=== PATIENT | male | born 1955 | race Caucasian/White ===

== ENCOUNTER 2017-11-26 23:59 | Emergency (ER) | payer OTHER ==
[2017-11-27] MEDS ORDERED: HYDROmorphone 1 MG/ML SYRINGE IM STA (00:41)
[2017-11-27] MEDS ORDERED: HYDROcod/ACET 5/325 Prepack 6 PO STA (00:42)
--- NOTE | 2017-11-27 01:14 | ED Physician Documentation ---
History of Present Illness - Stated complaint Stated Complaint: DENTAL PAIN - Chief complaint Chief Complaint: General - History obtained from History obtained from: Patient (pt here with left lower jaw pain. states that he had right sided dental procedure done approx 14 days ago., states that a couple days ago he had left sided pain. went to his dentis today who stated that he had a left sided dental infection and recommended a root canal. pt was started on PCN and sent home with motrin. pt states that he cannot ge tthe dental work completed until after the new year because of his insurance. he staes that he contacted his dentist because he thought that the swelling was worsening and he thought he had problems breathing.) Review of Systems Constitutional: denies: Fever, Chills Eyes: denies: Discharge, Irritation Nose: denies: Congestion, Sinus pressure / pain Throat: reports: Dental pain / toothache, Oral lesions / sores. denies: Swollen tonsils Cardiac: denies: Chest pain / pressure Respiratory: denies: Dyspnea, Cough GI: denies: Nausea, Vomiting Skin: denies: Rash, Lesions, Laceration (s) Musculoskeletal: denies: Neck pain Neurologic: reports: Headache. denies: Generalized weakness, Altered mental status PD PAST MEDICAL HISTORY - Past Medical History Cardiovascular: None Respiratory: None Neuro: None Endocrine/Autoimmune: None GI: None : None HEENT: None Psych: None Musculoskeletal: None Derm: None - Past Surgical History Past Surgical History: Yes General: Colonoscopy HEENT: Other - Present Medications Home Medications: Ambulatory Orders Medication Instructions Recorded Confirmed Acetaminophen [Tylenol] 650 mg PO Q6H PRN 09/27/15 10/02/15 - Allergies Allergies/Adverse Reactions: Allergies Allergy/AdvReac Type Severity Reaction Status Date / Time terbinafine HCl * Allergy Severe Anaphylaxis Verified 09/27/15 14:08 [From Lamisil] - Social History Does the pt smoke?: No Smoking Status: Never smoker Does the pt drink ETOH?: Yes Does the pt have substance abuse?: Yes PD ED PE NORMAL - Vitals Vital signs reviewed: Yes - General General: Alert and oriented X 3, Well developed/nourished. No: No acute distress (mild) - HEENT HEENT: Atraumatic, EOMI, Ears normal, Moist mucous membranes, Pharynx benign, Dentition benign, Other (dentition benign but pt with swelling and TTP to the left lower jaw around the 2nd molar. no drainable abscess seen on my exam. ) - Cardiac Cardiac: RRR, No murmur - Respiratory Respiratory: No respiratory distress, Clear bilaterally - Derm Derm: Normal color, Warm and dry, No rash - Neuro Neuro: Alert and oriented X 3 Eye Opening: Spontaneous Motor: Obeys Commands Verbal: Oriented GCS Score: 15 Results - Vitals Vitals: Vital Signs - 24 hr 11/27/17 00:07 Temperature 36.6 C Heart Rate 69 Respiratory 16 Rate Blood Pressure 131/86 H O2 Saturation 99 Oxygen O2 Source [With Activity] Nasal cannula O2 Source [Without Activity] Nasal cannula O2 Source Room air PD MEDICAL DECISION MAKING - ED course Complexity details: considered differential, d/w patient ED course: pt with left sided dental infection. no airway compromise on this exam. pt is on ABX from his dentist and is just finishing the first day's dose. No skin changes over the area. offered dental block but pt declined. Will giv IM dose of pain medications. He states that he was told by his dentist that he could be seen tomorrow. gave a pre-pack of pain medications. he was instructed to continue his antibiotics. Departure - Departure Disposition: 01 Home, Self Care Clinical Impression: Dental abscess Condition: Good Instructions: ED Abscess Dental Follow-Up: primary, care provider [Other] Comments: Continue your antibiotics that you were given by your dentist. take the pain medications that you were given on this visit as directed. Call your dentist tomorrow for a follow up.
[2017-11-27 02:17] VITALS: BP 121/88
== END 2017-11-27 02:27 | disposition home or self-care (01) ==
LOC: ED 23:59
DX: K04.7 Periapical abscess without sinus (principal); Z98.890 Other specified postprocedural states
CPT/HCPCS: 96372; 99283; J1170

== ENCOUNTER 2019-10-16 07:05 | Emergency (ER) | payer OTHER ==
[2019-10-16] MEDS ORDERED: SODIUM CHLORIDE 0.9% 1,000 ML IV ONE (07:26)
[2019-10-16] MEDS ORDERED: KETOROLAC 30 MG/ML VIAL IVP STA (07:26)
[2019-10-16] MEDS ORDERED: LIDOCAINE-MPF 2% 5 ML in SODIUM CHLORIDE 0.9% 50 ML IV STA (07:26)
[2019-10-16 07:41] LABS: BASOPHILS % (AUTO) 0.7 %; EOSINOPHILS # (AUTO) 0.1 10^3/uL (0.0-0.7); EOSINOPHILS % (AUTO) 2.2 %; LYMPHOCYTES # (AUTO) 1.2 10^3/uL (1.5-3.5); LYMPHOCYTES % (AUTO) 20.6 %; MEAN CORPUSCULAR HEMOGLOBIN 32.1 pg (27.0-31.0); MEAN CORPUSCULAR HGB CONC 33.9 g/dL (32.0-36.0); MEAN CORPUSCULAR VOLUME 94.9 fL (80.0-94.0); MEAN PLATELET VOLUME 8.6 fL (7.4-11.4); MONOCYTES # (AUTO) 0.5 10^3/uL (0.0-1.0); NEUTROPHILS # (AUTO) 3.9 10^3/uL (1.5-6.6); NEUTROPHILS % (AUTO) 67.2 %; PLT - PLATELET COUNT 229 10^3/uL (130-450); RED BLOOD COUNT 4.67 10^6/uL (4.70-6.10); RED CELL DISTRIBUTION WIDTH 12.4 % (12.0-15.0); WHITE BLOOD COUNT 5.8 x10^3/uL (4.8-10.8)
[2019-10-16 07:46] LABS: BILIRUBIN,URINE NEGATIVE (NEGATIVE); GLUCOSE, URINE (UA) NEGATIVE (NEGATIVE); KETONES,URINE (UA) NEGATIVE (NEGATIVE); LEUKOCYTE ESTERASE, URINE NEGATIVE (NEGATIVE); NITRITE,URINE NEGATIVE (NEGATIVE); OCCULT BLOOD,URINE MODERATE (NEGATIVE); PH,URINE 5.5 PH (5.0-7.5); PROTEIN,URINE NEGATIVE (NEGATIVE); UROBILINOGEN,URINE 0.2 (NORMAL) E.U./dL (NORMAL)
[2019-10-16 07:47] LABS: CLARITY,URINE CLEAR (CLEAR)
[2019-10-16] MEDS ORDERED: ONDANSETRON 4 MG/2 ML VIAL IVP STA (07:50)
[2019-10-16] MEDS ORDERED: HYDROmorphone 1 MG/ML CARPUJECT IVP STA (07:50)
[2019-10-16 07:55] LABS: ALBUMIN 4.3 g/dL (3.2-5.5); ALBUMIN/GLOBULIN RATIO 1.6 (1.0-2.2); BILIRUBIN,TOTAL 0.8 mg/dL (0.2-1.0); CALCIUM 8.8 mg/dL (8.5-10.3); CREATININE 0.9 mg/dL (0.6-1.2)
[2019-10-16 07:58] LABS: BACTERIA,URINE None Seen /HPF (None Seen); MUCUS,URINE Few Strands; SQUAMOUS EPITHELIAL CELL,UR NONE SEEN (<= Few)
--- NOTE | 2019-10-16 08:00 | ED Physician Documentation ---
History of Present Illness - Stated complaint Stated Complaint: L BACK PX - Chief complaint Chief Complaint: Abd Pain - History obtained from History obtained from: Patient, Family - History of Present Illness Timing: Last night Pain level max: 10 Pain level now: 10 - Additonal information Additional information: 64-year-old male with right flank pain that radiates to the right groin. Nothing makes it better or worse. Has never had similar symptoms previously. No nausea or vomiting. No fevers. Did not take anything for the pain. Patient also states that his right foot has been hurting for the past 2 weeks since being stepped on by another person. Worse with walking, better with rest Review of Systems Ten Systems: 10 systems reviewed and negative Constitutional: denies: Fever, Chills Cardiac: denies: Chest pain / pressure Respiratory: denies: Cough GI: denies: Vomiting, Diarrhea : denies: Dysuria Skin: denies: Rash Musculoskeletal: denies: Neck pain, Back pain Neurologic: denies: Focal weakness, Numbness, Headache PD PAST MEDICAL HISTORY - Past Medical History Cardiovascular: None Respiratory: None Endocrine/Autoimmune: None GI: None : None HEENT: None Psych: None Musculoskeletal: None Derm: None - Past Surgical History Past Surgical History: Yes General: Colonoscopy HEENT: Other - Present Medications Home Medications: Ambulatory Orders Medication Instructions Recorded Confirmed Acetaminophen [Tylenol] 650 mg PO Q6H PRN 09/27/15 10/02/15 Ibuprofen [Motrin] 800 mg PO Q8H PRN #30 tablet 10/16/19 Ondansetron Odt [Zofran] 4 mg TL Q6H PRN #10 tablet 10/16/19 Oxycodone HCl/Acetaminophen 1 - 2 each PO Q6H PRN #14 tablet 10/16/19 [Percocet 5-325 mg Tablet] - Allergies Allergies/Adverse Reactions: Allergies Allergy/AdvReac Type Severity Reaction Status Date / Time terbinafine HCl * Allergy Severe Anaphylaxis Verified 10/16/19 07:14 [From Lamisil] - Social History Does the pt smoke?: No Smoking Status: Never smoker Does the pt drink ETOH?: Yes Does the pt have substance abuse?: Yes PD ED PE NORMAL - Vitals Vital signs reviewed: Yes - General General: Alert and oriented X 3, Well developed/nourished, Other (Appears in pain) - HEENT HEENT: PERRL, Moist mucous membranes - Neck Neck: Supple, no meningeal sign - Cardiac Cardiac: RRR - Respiratory Respiratory: No respiratory distress, Clear bilaterally - Abdomen Abdomen: Soft, Non tender, Non distended - Back Back: No CVA TTP, No spinal TTP - Derm Derm: Warm and dry, No rash - Extremities Extremities: No edema, Other (Tender to palpation over the dorsum of the right foot. Neurovascular intact. No deformity. No ecchymosis.) - Neuro Neuro: Alert and oriented X 3, supervisor paper coating 2-12 intact, No motor deficit, No sensory deficit - Psych Psych: Normal mood, Normal affect Results - Vitals Vitals: Vital Signs - 24 hr 10/16/19 10/16/19 10/16/19 07:13 07:53 08:08 Temperature 36.7 C Heart Rate 59 L 60 61 Respiratory 18 20 16 Rate Blood Pressure 167/102 H 147/90 H 157/99 H O2 Saturation 99 100 100 10/16/19 09:01 Temperature Heart Rate 51 L Respiratory 16 Rate Blood Pressure 160/96 H O2 Saturation 94 Oxygen O2 Source [] Nasal cannula O2 Source [] Nasal cannula O2 Source Room air - Labs Labs: Laboratory Tests 10/16/19 10/16/19 10/16/19 07:15 07:25 07:25 WBC 5.8 RBC 4.67 L Hgb 15.0 Hct 44.3 MCV 94.9 H MCH 32.1 H MCHC 33.9 RDW 12.4 Plt Count 229 MPV 8.6 Neut # (Auto) 3.9 Lymph # (Auto) 1.2 L [place] # (Auto) 0.5 Eos # (Auto) 0.1 Baso # (Auto) 0.0 Absolute Nucleated RBC 0.00 Nucleated RBC % 0.0 Sodium 139 Potassium 3.7 Chloride 101 Carbon Dioxide 28 Anion Gap 10.0 BUN 19 Creatinine 0.9 Estimated GFR (MDRD) 86 L Glucose 157 H Calcium 8.8 Total Bilirubin 0.8 AST 19 ALT 23 Alkaline Phosphatase 47 Total Protein 7.0 Albumin 4.3 Globulin 2.7 Albumin/Globulin Ratio 1.6 Lipase 35 Urine Color YELLOW Urine Clarity CLEAR Urine pH 5.5 Ur Specific [place] 1.025 Urine Protein NEGATIVE Urine Glucose (UA) NEGATIVE Urine Ketones NEGATIVE Urine Occult Blood MODERATE H Urine Nitrite NEGATIVE Urine Bilirubin NEGATIVE Urine Urobilinogen 0.2 (NORMAL) Ur Leukocyte Esterase NEGATIVE Urine RBC 6-10 H Urine WBC 0-3 Ur Squamous Epith Cells NONE SEEN Urine Bacteria None Seen Urine Mucus Few Strands Ur Microscopic Review INDICATED Urine Culture Comments NOT INDICATED - Rads (name of study) Right foot x-ray Radiology: Prelim report reviewed, EMP read contemporaneously, See rad report (1. No fracture or dislocation. 2. 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 3. Subchondral cyst or small erosion at the base of the fifth middle phalanx. ) CT abd/pelvis Radiology: Prelim report reviewed, EMP read contemporaneously, See rad report (1. Nonobstructing bilateral renal calculi. 2. No findings identified to explain right flank pain. ) PD MEDICAL DECISION MAKING - ED course Complexity details: reviewed results, re-evaluated patient, considered differential, d/w patient, d/w family ED course: 64-year-old male with bilateral renal calculi. No ureteral stone seen. Possible that he passed the stone? Pain resolved in the emergency department. He is well-appearing, nontoxic. Afebrile. Abdomen is soft, nontender nondistended on serial exam. Negative foot x-ray. Patient counseled regarding signs and symptoms for which I believe and urgent re-evaluation would be necessary. Patient with good understanding of and agreement to plan and is comfortable going home at this time This document was made in part using voice recognition software. While efforts are made to proofread this document, sound alike and grammatical errors may occur. Departure - Departure Disposition: 01 Home, Self Care Clinical Impression: Ureteral calculus, right Condition: Good Instructions: ED Stone Renal W Colic Follow-Up: Jeancarlos Raman MD [Provider Admit Priv/Credential] - Jeancarlos Raman MD [Physician No Access] - Prescriptions: Ibuprofen [Motrin] 800 mg PO Q8H PRN #30 tablet PRN Reason: PAIN &/OR FEVER Ondansetron Odt [Zofran] 4 mg TL Q6H PRN #10 tablet PRN Reason: Nausea / Vomiting Oxycodone HCl/Acetaminophen [Percocet 5-325 mg Tablet] 1 - 2 each PO Q6H PRN #14 tablet PRN Reason: pain Comments: Return if you worsen. Follow-up with urology for further care. Return especially for uncontrolled pain, vomiting or fevers. Do not drink alcohol or drive while on narcotic pain medicine. Note that many narcotic pain relievers also contain tylenol/acetaminophen. Please ensure that your total dose of acetaminophen from all sources does not exceed 3 grams (3000mg) per day. You may constipated on this medication, take a stool softener such as "Colace" twice a day while you are on it. Also recommend a juae-kmg-obtscay laxative such as senna or MiraLAX any day that you do not have a bowel movement. If you received narcotic pain medication in the emergency department, do not drive or operate machinery for the next 24 hours. Right Kidney/Ureter: 9 x 6 mm mid pole, 1 mm lower pole right renal calculi. No hydronephrosis or perinephric fat stranding. No ureteral calculus. Left Kidney/Ureter: 3 mm mid pole calculus. No hydronephrosis or hydroureter. No perinephric or periureteral fat stranding. No ureteral calculus. Discharge Date/Time: 10/16/19 09:31
--- NOTE | 2019-10-16 08:29 | CT Report ---
Reason: R flank pain Procedure Date: 10/16/2019 Accession Number: [id number] / [id number] Procedure: CT - Abdomen/Pelvis WO CPT Code: Final Report FULL RESULT: EXAM: CT ABDOMEN AND PELVIS (CT KUB) EXAM DATE: 10/16/2019 07:51 AM. CLINICAL HISTORY: R flank pain. COMPARISONS: None. TECHNIQUE: Routine axial helical CT imaging was performed through the abdomen and pelvis without IV contrast. Reconstructions: Coronal and sagittal. In accordance with CT protocol optimization, one or more of the following dose reduction techniques were utilized for this exam: automated exposure control, adjustment of mA and/or KV based on patient size, or use of iterative reconstructive technique. FINDINGS: Lung Bases: Unremarkable. Right Kidney/Ureter: 9 x 6 mm mid pole, 1 mm lower pole right renal calculi. No hydronephrosis or perinephric fat stranding. No ureteral calculus. Left Kidney/Ureter: 3 mm mid pole calculus. No hydronephrosis or hydroureter. No perinephric or periureteral fat stranding. No ureteral calculus. Other Solid Organs: Noncontrast images of the solid organs are grossly unremarkable. Gallbladder/Bile Ducts: Unremarkable. Peritoneal Cavity: Unopacified stomach and small bowel are unremarkable. Appendix is normal. There is a small amount of formed stool in the colon. There is no focal pericolonic fat stranding. There is mild sigmoid colon diverticulosis. Pelvic Organs: Bladder unremarkable. No bladder calculi. Prostate gland and seminal vesicles unremarkable. Vasculature: Minimal aortic calcification. Bilateral pelvic phleboliths. Other: Small fat-containing left inguinal hernia. Left total hip arthroplasty causing beam hardening artifact. Minimal diffuse idiopathic skeletal hyperostosis in the lower thoracic greater than lumbar spine. IMPRESSION: 1. Nonobstructing bilateral renal calculi. 2. No findings identified to explain right flank pain. [facility]
--- NOTE | 2019-10-16 08:29 | XRAY Report ---
Reason: R foot pain x 2 weeks Procedure Date: 10/16/2019 Accession Number: [id number] / [id number] Procedure: XR - Foot 3 View RT CPT Code: Final Report FULL RESULT: EXAM: RIGHT FOOT RADIOGRAPHY EXAM DATE: 10/16/2019 08:06 AM. CLINICAL HISTORY: R foot pain x 2 weeks. COMPARISON: None. TECHNIQUE: 3 views. FINDINGS: Bones: No fracture. Subchondral cyst or small erosion at the base of the fifth middle phalanx. Joints: Hallux valgus with first metatarsal phalangeal joint angle measuring 20 degrees. First metatarsophalangeal joint osteoarthritis with joint space loss and osteophytosis. Soft Tissues: Normal. No soft tissue swelling. IMPRESSION: 1. No fracture or dislocation. 2. 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 3. Subchondral cyst or small erosion at the base of the fifth middle phalanx. [facility]
[2019-10-16] MEDS ORDERED: oxyCODONE 5 MG TABLET PO STA (08:56)
[2019-10-16 09:02] VITALS: BP 160/96
== END 2019-10-16 09:31 | disposition home or self-care (01) ==
LOC: ED 07:05
DX: N20.0 Calculus of kidney (principal); M19.071 Primary osteoarthritis, right ankle and foot; M21.611 Bunion of right foot
CPT/HCPCS: 36415; 73630; 74176; 80053; 81001; 83690; 85025; 96374; 96375; 99284; A9270; J1170; J7040; 81003; 87086

== ENCOUNTER 2019-10-19 09:58 | Day surgery (SDC) | payer OTHER ==
[2019-10-19] MEDS ORDERED: LACTATED RINGERS 1,000 ML IV ONE (10:18)
[2019-10-19] MEDS ORDERED: fentaNYL 250 MCG/5 ML VIAL IVP ONE (11:53)
[2019-10-19] MEDS ORDERED: MIDAZOLAM 2 MG/2 ML VIAL IVP ONE (11:53)
[2019-10-19 13:09] VITALS: BP 153/99
== END 2019-10-19 09:59 | disposition home or self-care (01) ==
LOC: SDS 09:58
PROVIDERS: ATTEND Internal Medicine Gastroenterology
PROC: 0DBL8ZZ Excision of Transverse Colon, Via Natural or Artificial Opening Endoscopic (ICD-10-PCS; 2019-10-19)
PROC: 0DBN8ZZ Excision of Sigmoid Colon, Via Natural or Artificial Opening Endoscopic (ICD-10-PCS; principal; 2019-10-19 11:15)
DX: K57.31 Diverticulosis of large intestine without perforation or abscess with bleeding (principal); K64.8 Other hemorrhoids; D12.3 Benign neoplasm of transverse colon; D12.5 Benign neoplasm of sigmoid colon; Z87.442 Personal history of urinary calculi
CPT/HCPCS: 45385; J7120

== ENCOUNTER 2021-08-07 14:14 | Outpatient (CLI) | payer OTHER ==
--- NOTE | 2021-08-07 17:28 | MRI Report ---
PROCEDURE: Hip LT W/O INDICATIONS: LEFT HIP PAIN TECHNIQUE: Noncontrast coronal T1 spin echo and STIR through the bony pelvis. Coronal and axial T2 fast spin ec ho with fat saturation, sagittal T1 spin echo, and oblique axial T2 fast spin echo with fat saturatio n through the hip. COMPARISON: CT of abdomen and pelvis dated 10/16/2019. FINDINGS: Image quality: Limited. Significant susceptibility artifacts in left hip are seen. Bones and joints: Patient is status post left total hip arthroplasty with significant susceptibility artifacts limits evaluation of left hip structures. Rest of the bony pelvis shows no marrow signal ab normality. No fracture or dislocation. Mild to moderate right hip joint osteoarthritic changes are se en. No evidence of avascular necrosis of femoral head. No suspicious intraosseous lesion. Tendons: The gluteus medius and minimus tendinosis at the, without associated muscle atrophy. The i liopsoas tendon appears intact, without adjacent bursal fluid collections. The origin of the hamstri ng tendon is intact at the ischial tuberosity. Labrum and cartilage: The acetabular labrum appears intact in the absence of intra-articular contras t. Cartilage surface of the femoral head appears of normal thickness. The alpha angle of the femur is within normal limits at less than 55 degrees. Soft tissues: Visualized muscles demonstrate normal bulk and internal signal. The proximal sciatic neurovascular bundle appears normal adjacent to the hamstring tendons. No free pelvic fluid. Bladde r wall thickness is normal. Genitourinary structures and bowel loops appear normal where visualized. IMPRESSION: 1. Markedly limited study due to significant susceptibility artifacts in left hip from left hip prost hesis. Visualized osseous structures shows no marrow edema. No fracture or dislocation. Mild to moder ate right hip joint osteoarthritis without evidence of avascular necrosis of femoral head. 2. Distal left gluteus medius and minimus tendinosis at the level of greater trochanter. No other omaira ss muscle or tendon signal abnormality. Reviewed by: Bernardo Arceo MD on 08/07/2021 5:27 PM PDT Approved by: Bernardo Arceo MD on 08/07/2021 5:27 PM PDT Station ID: [id number]
== END 2021-08-07 14:15 | disposition home or self-care (01) ==
LOC: DI 14:14
PROVIDERS: ATTEND Student in an Organized Health Care Education/Training Program
DX: M67.952 Unspecified disorder of synovium and tendon, left thigh (principal); M16.11 Unilateral primary osteoarthritis, right hip; Z96.642 Presence of left artificial hip joint

== ENCOUNTER 2022-09-27 06:21 | Day surgery (SDC) | payer MEDICARE, OTHER ==
[2022-09-27] MEDS ORDERED: LACTATED RINGERS 1,000 ML IV ONE (06:44)
--- NOTE | 2022-09-27 06:51 | ANESTHESIA ---
Pre-Anesthesia VS, & Labs - Diagnosis symptomatic hemorrhoids - Procedure excision hemorrhoids Vital Signs: Temp Pulse Resp BP Pulse Ox O2 Flow Rate 36.0 C L 65 16 123/77 96 0 09/27/22 06:45 09/27/22 06:45 09/27/22 06:45 09/27/22 06:45 09/27/22 06:45 09/27/22 06:45 Height: 5 ft 5 in Weight (kg): 75.3 kg Body Mass Index: 27.6 BMI Classification: Overweight - NPO >8 hours - Lab Results Lab results reviewed: Yes Home Medications and Allergies Home Medications: Ambulatory Orders No Known Home Medications 09/20/22 No Known Home Medications 09/20/22 Allergies/Adverse Reactions: Allergies Allergy/AdvReac Type Severity Reaction Status Date / Time terbinafine HCl * Allergy Severe Anaphylaxis Verified 09/27/22 06:57 [From Lamisil] Anes History & Medical History - Anesthetic History Anesthesia Complications: reports: No previous complications Family history of Anesthesia Complications: Denies Family history of Malignant Hyperthermia: Denies - Medical History Cardiovascular: reports: None Pulmonary: reports: Sleep apnea Gastrointestinal: reports: Colon polyps, Hemorrhoids Urinary: reports: None Musculoskeletal: reports: None Endocrine/Autoimmune: reports: None Skin: reports: None Smoking Status: Never smoker - Surgical History General: reports: Colonoscopy Eyes Ears Nose Throat (EENT): reports: Other Exam General: Alert, Oriented x3, Cooperative Dental: WNL Mouth Openin Fingerbreadth Neck Mobility: Normal Mallampati classification: I Thyromental Distance: 4-6 cm Respiratory: Lungs clear, Normal breath sounds, No respiratory distress Cardiovascular: Regular rate Neurological: Normal speech Mental/Cognitive Status: Alert/Oriented X3, Normal for patient Cognitive Status: Within normal limits Plan Anesthesia Type: General Consent for Procedure(s) Verified and Reviewed: Yes Code Status: Attempt Resuscitation ASA classification: 2-Mild systemic disease Is this case an emergency?: No
[2022-09-27] MEDS ORDERED: METOCLOPRAMIDE 10 MG/2 ML VIAL IVP PRN (06:58)
[2022-09-27] MEDS ORDERED: ePHEDrine 50 MG/ML VIAL IVP PRN (06:58)
[2022-09-27] MEDS ORDERED: NALOXONE 0.4 MG/ML VIAL IVP PRN (06:58)
[2022-09-27] MEDS ORDERED: fentaNYL 100 MCG/2 ML VIAL IVP PRN (06:58)
[2022-09-27] MEDS ORDERED: ONDANSETRON 4 MG/2 ML VIAL IVP PRN ×2 (06:58→09:38)
[2022-09-27] MEDS ORDERED: ATROPINE ABBOJECT 1 MG/10 ML SYRINGE IVP PRN (06:58)
[2022-09-27] MEDS ORDERED: MORPHINE 2 MG/ML CARPUJECT IVP PRN (06:58)
[2022-09-27] MEDS ORDERED: HYDROmorphone 0.5 MG/0.5 ML SYRINGE IVP PRN ×2 (06:58→09:38)
[2022-09-27] MEDS ORDERED: LACTATED RINGERS 1,000 ML IV SCH (07:00)
[2022-09-27] MEDS ORDERED: ROCURONIUM 50 MG/5 ML VIAL ONE (07:12)
[2022-09-27] MEDS ORDERED: PROPOFOL 200 MG/20 ML VIAL IVP ONE (07:12)
[2022-09-27] MEDS ORDERED: fentaNYL 100 MCG/2 ML VIAL ONE (07:13)
[2022-09-27] MEDS ORDERED: MIDAZOLAM 2 MG/2 ML VIAL ONE (07:13)
[2022-09-27] MEDS ORDERED: LIDOCAINE-PF 2% 10 ML AMP SUBQ ONE (07:17)
[2022-09-27] MEDS ORDERED: SEVOFLURANE 250 ML LIQUID INH ONE (07:17)
[2022-09-27] MEDS ORDERED: LIDOCAINE MPF 2%-EPI 1:200000 20 ML VIAL ONE (07:23)
[2022-09-27] MEDS ORDERED: LIDOCAINE JELLY 2% 6 ML JEL.PF.APP ONE (07:23)
[2022-09-27] MEDS ORDERED: BUPIVACAINE 0.25% PF 10 ML VIAL ONE (07:24)
[2022-09-27] MEDS ORDERED: DEXAMETHASONE 4 MG/ML VIAL ONE (08:07)
[2022-09-27] MEDS ORDERED: ONDANSETRON 4 MG/2 ML VIAL ONE (08:07)
[2022-09-27] MEDS ORDERED: PHENYLEPHRINE 10 MG/ML VIAL ONE (08:13)
[2022-09-27] MEDS ORDERED: NEOSTIGMINE 1 MG/1 ML 10 ML MDV ONE (08:31)
[2022-09-27] MEDS ORDERED: GLYCOPYRROLATE 1 MG/5 ML VIAL ONE (08:31)
[2022-09-27] MEDS ORDERED: KETOROLAC 30 MG/ML VIAL ONE (08:36)
[2022-09-27] MEDS ORDERED: LIDOCAINE MPF 2%-EPI 1:200000 20 ML VIAL SUBQ ONE (09:03)
[2022-09-27] MEDS ORDERED: LIDOCAINE JELLY 2% 6 ML JEL.PF.APP UR ONE (09:03)
[2022-09-27] MEDS ORDERED: BUPIVACAINE 0.25% PF 10 ML VIAL SUBQ ONE (09:03)
[2022-09-27] MEDS ORDERED: LACTATED RINGERS 400 ML IV ONE (09:18)
--- NOTE | 2022-09-27 09:18 | OPERATIVE REPORT ---
Operative Report - General Procedure Date: 09/27/22 Planned Procedure: PPH hemorrhoidectomy Pre-Op Diagnosis: Symptomatic hemorrhoids Procedure Performed: PPH hemorrhoidopexy with LigaSure excision of redundant hemorrhoidal tissue Post Op Diagnosis: Same - Procedure Note Primary Surgeon: Jeff Kidd MD Anesthesia Provider: Abdoul Yanes CRNA Anesthesia Technique: General ET tube, Local (40 mL of 50-50 mix of quarter percent Marcaine and 2% lidocaine with 1% epinephrine) IV Fluids (mL): 600 Estimated Blood Loss (mL): 20 Drain/Tube Type: Other (None.) Indications: As above. Complications: None. - Other Other Information/Narrative: After verbal and written informed consent was obtained detailing the operation, the alternatives the operation including no operation, risks of infection, bleeding requiring transfusion with its risks, nerve injury, and and after I met with the patient confirming the surgery and the site of surgery, the patient was brought to the operative suite and placed supine on the operating table. Great care was taken to avoid pressure points to prevent pressure necrosis or nerve injury. Monitoring devices were applied. Abdoul Yanes CRNA sedated and anesthetized the patient for the entire procedure. The patient was then placed in prone jackknife position and prepped and draped in the usual sterile manner. Again, great care was taken to avoid pressure points to prevent pressure necrosis or nerve injury. A "time in" then confirmed that the patient was identified with 3 identifiers (name, date, and medical record number), the history and physical was updated and in the chart, the signed consent confirming the procedure was in the chart, the patient was in the correct position, the aforementioned prophylactic measures were in place or given, we had the correct personnel and equipment to complete the procedure and that anesthesia and the surgical team were given an opportunity to express any concer ns. With the agreement of everyone in the room we proceeded with the operation. External examination revealed a small skin tag at the 12 o'clock position. Digital rectal examination was done progressively from 1 to 3 fingers using a water-soluble lubricant to gently dilate the area. A PPH kit was obtained and opened. The white dilator was carefully placed in the patient's anus and left in place for several minutes to gently open the area. This was then removed and replaced with the access port and anoscope. The access port was then sewn to the perianal skin using 2-0 nylon superiorly and inferiorly to keep it in place. With the anoscope in place great care was taken to place a pursestring suture of 2-0 Prolene 4 cm up from the anal verge. Small bites were taken every 45 degrees circumferentially starting at the 3 o'clock position. I actually went beyond the 3 o'clock position upon return just to ensure that there was a complete pamunkey. Upon completion of the pursestring I placed my finger through the purse-string suture and pulled the pursestring suture a little bit tighter to ensure there was a complete purse-string about my finger. There was. The anvil was then placed past the purse-string and the suture tied tied about the post. The end of the suture was then placed through the hole at the orange port of the anvil and tied tight. The anvil was then secured to the stapler and screwed down taking care to advance the stapler to ensure that the staple was 4 cm up from the anal verge. 3 minutes were allowed to elapse to allow for emptying of blood from the hemorrhoidal tissues. The stapler was then fired and removed. Unfortunately, despite care taken to ensure there was a complete and total purse-string there was not a circumferential staple line and this was evident at the 9 o'clock position. Due to this I elected to excise some redundant hemorrhoidal tissue at the 9 o'clock position with serial application of the LigaSure. Hemostasis was noted to be present. The perianal area was then injected with a combination of quarter percent Marcaine and 2% lidocaine with epinephrine for immediate and long-term anesthetic control. A Gelfoam roll was come constructed using Gelfoam and lidocaine jelly and inserted into the patient's anus for long-term pain control as well as to absorb any blood that may be present. An ABD was placed exteriorly. At this point a timeout was performed that confirmed that all counts were correct x2, the procedure that was performed, the blood loss, the IV fluids administered, the patient's condition, and any concerns of the operating team had. Having tolerated the procedure well, the patient was taken recovery room in good and stable condition. The plan is for outpatient discharge when the patient is adequately recovered. This document was created in part using voice recognition technology. Because of the inherent limitations of the system, occasional same sounding word substitutions and grammatical errors do occur and persist despite proofreading. Please read this document for content. [facility] [id number]
[2022-09-27] MEDS ORDERED: HYDROcod/ACETAM 5/325 MG TABLET PO PRN (09:38)
--- NOTE | 2022-09-27 09:46 | ANESTHESIA POST OP EVALUATION ---
Anesthesia Post Eval - Post Anesthesia Eval Vitals: Last Vital Signs Temp 36.2 C L 09/27/22 09:32 Pulse 90 09/27/22 09:32 Resp 24 09/27/22 09:32 BP 138/91 H 09/27/22 09:32 Pulse Ox 99 09/27/22 09:32 O2 Flow Rate 0 09/27/22 06:45 CV Function Including HR & BP: Stable Pain Control: Satisfactory Nausea & Vomiting: Negative Mental Status: Baseline Respiratory Status: Airway Patent Hydration Status: Satisfactory Anesthesia Complications: None
[2022-09-27 10:02] VITALS: BP 132/90
== END 2022-09-27 06:22 | disposition home or self-care (01) ==
LOC: SDS 06:21
PROVIDERS: ATTEND Surgery
PROC: 06BY4ZC Excision of Hemorrhoidal Plexus, Percutaneous Endoscopic Approach (ICD-10-PCS; principal; 2022-09-27 07:30)
DX: K64.8 Other hemorrhoids (principal); K64.4 Residual hemorrhoidal skin tags; G47.30 Sleep apnea, unspecified; Z86.010 Personal history of colon polyps
CPT/HCPCS: 46947; J3490; J7120

== ENCOUNTER 2023-05-27 13:12 | Emergency (ER) | payer MEDICARE, OTHER ==
[2023-05-27 13:20] VITALS: BP 150/90
--- NOTE | 2023-05-27 13:39 | ED Physician Documentation ---
PD HPI LOWER EXT INJURY - Stated complaint Stated Complaint: RT FOOT INJ - Chief complaint Chief Complaint: Ext Problem - History obtained from History obtained from: Patient, Friend - History of Present Illness PD HPI LOW EXT INJURY LOCATION: Right, Foot Type of injury: Blunt / blow Where injury occurred: Home Timing - onset: How many weeks ago (1) Timing - duration: Weeks (1) Timing - details: Abrupt onset, Still present Improved by: Rest Worsened by: Moving, Palpating Associated symptoms: Swelling, Discolored Contributing factors: No: Anticoagulated, Prior ortho surgery Similar symptoms before: Diagnosis (skin infection) Recently seen: Not recently seen - Additional information Additional information: Previously well Antonio Singh is a 68-year-old male who comes to the emergency department today with the chief complaint of pain and swelling to his right foot. He has taken some penicillin he had left over and he believes it has helped some. He did injure the foot between the toes laterally and he felt it was healing until about 5 days ago. Review of Systems Constitutional: denies: Fever Ears: denies: Ear pain Nose: denies: Congestion Throat: denies: Sore throat Respiratory: denies: Cough GI: denies: Vomiting, Diarrhea PD PAST MEDICAL HISTORY - Past Medical History Cardiovascular: None Respiratory: Sleep apnea Endocrine/Autoimmune: None GI: Colon polyps, Hemorrhoids : None HEENT: None Psych: None Musculoskeletal: None Derm: None - Past Surgical History Past Surgical History: Yes General: Colonoscopy HEENT: Other - Present Medications Home Medications: Ambulatory Orders Medication Instructions Recorded Confirmed Docusate Sodium 250Mg Capsule 250 mg PO DAILY #10 cap 09/27/22 [Colace 250Mg Capsule] HYDROcod/ACETAM 5/325 [[place] 5/325] 1 each PO Q4H #20 tablet 09/27/22 cephALEXin [Keflex] 500 mg PO Q6H #28 cap 05/27/23 - Allergies Allergies/Adverse Reactions: Allergies Allergy/AdvReac Type Severity Reaction Status Date / Time terbinafine HCl * Allergy Severe Anaphylaxis Verified 05/27/23 13:17 [From Lamisil] - Social History Does the pt smoke?: No Smoking Status: Never smoker Does the pt drink ETOH?: Yes Does the pt have substance abuse?: Yes PD ED PE NORMAL - Vitals Vital signs reviewed: Yes (hypertensive ) - General General: Alert and oriented X 3, No acute distress, Well developed/nourished - HEENT HEENT: Atraumatic, PERRL, EOMI - Respiratory Respiratory: No respiratory distress - Extremities Extremities: No deformity, No edema, Other (There is erythema and swelling be tween the 4th and 5th toes with drainage present. No mass present. healing laceration suspected between toes. 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, No motor deficit, No sensory deficit, Normal speech Eye Opening: Spontaneous Motor: Obeys Commands Verbal: Oriented GCS Score: 15 - Psych Psych: Normal mood, Normal affect Results - Vitals Vitals: Vital Signs - 24 hr 05/27/23 13:17 Temperature 36.5 C Heart Rate 78 Respiratory 16 Rate Blood Pressure 150/90 H O2 Saturation 98 Oxygen O2 Source [With Activity] Nasal cannula O2 Source [Without Activity] Nasal cannula O2 Source Room air PD Medical Decision Making - ED course Complexity details: considered differential, d/w patient, d/w family ED course: 68-year-old male with a cellulitis to the dorsum of the right foot that starts out between the fourth and fifth toes. He has had some partial response to penicillin we will place him on some Keflex and warm compresses and expect resolution. Departure - Departure Disposition: 01 Home, Self Care Clinical Impression: Cellulitis Qualifiers: Site of cellulitis: extremity Site of cellulitis of extremity: lower extremity Laterality: right Qualified Code(s): L03.115 - Cellulitis of right lower limb Condition: Stable Instructions: ED Infec Skin Cellulitis Follow-Up: [facility] [place] [Provider Group] Prescriptions: cephALEXin [Keflex] 500 mg PO Q6H #28 cap Comments: Fred, today it looks like you have an infection under the skin in the fat layer. This is called cellulitis and this can sometimes spread rapidly. It looks like it is already responding to the penicillin you have been taking. Today we are E scribing some Keflex to the [facility] in [place]. My recommendation is to use a warm compress or a warm soak 2-3 times per day to increase the blood supply to the skin and aid in the healing and fighting of the infection. Our expectation with treatment is improvement day by day especially over the next 2 days. A failure of treatment is a reason to come back to the hospital. Failure would appear as increasing redness and swelling along the top of your foot or a red line from the foot into the calf. Discharge Date/Time: 05/27/23 14:00
== END 2023-05-27 14:00 | disposition home or self-care (01) ==
LOC: ED 13:12
DX: L03.115 Cellulitis of right lower limb (principal)
CPT/HCPCS: 99281; 99283

== ENCOUNTER 2024-07-12 11:09 | Emergency (ER) | payer MEDICARE, OTHER ==
[2024-07-12 11:30] VITALS: O2SAT 99
[2024-07-12 11:58] LABS: BASOPHILS % (AUTO) 0.8 %; EOSINOPHILS % (AUTO) 0.8 %; HCT - HEMATOCRIT 47.6 % (42.0-52.0); HGB - HEMOGLOBIN 15.7 g/dL (14.0-18.0); LYMPHOCYTES # (AUTO) 0.7 10^3/uL (1.5-3.5); MEAN CORPUSCULAR HEMOGLOBIN 31.4 pg (27.0-31.0); MEAN CORPUSCULAR VOLUME 95.2 fL (80.0-94.0); MEAN PLATELET VOLUME 8.9 fL (7.4-11.4); MONOCYTES # (AUTO) 0.4 10^3/uL (0.0-1.0); MONOCYTES % (AUTO) 7.8 %; NEUTROPHILS # (AUTO) 3.8 10^3/uL (1.5-6.6); NEUTROPHILS % (AUTO) 76.2 %; PLT - PLATELET COUNT 254 10^3/uL (130-450); RED CELL DISTRIBUTION WIDTH 12.5 % (12.0-15.0)
--- NOTE | 2024-07-12 12:09 | ED Physician Documentation ---
PD HPI CHEST PAIN - Stated complaint Stated Complaint: HIGH HEART RATE - Chief complaint Chief Complaint: Cardiac - Additional information Additional information: 69-year-old male with history of sleep apnea, colon polyps, hemorrhoids presents emergency department for concerns of high heart rate. Patient denies any past medical history related to his heart or hypertension he says that he does not take any medications no new supplements he does use CBD/TSH every few days and drinks beer here and there but not daily. He said that his about a year ago and he has been having severe depression and anxiety since then he does not drink any caffeine and says that he has been having what he describes as heart palpitations over the last 3 to 4 days. He does not have a primary care provider he denies any chest pain dizziness or shortness of breath. 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 No fevers or chills no recent illnesses. PD PAST MEDICAL HISTORY - Past Medical History Cardiovascular: None Respiratory: Sleep apnea Neuro: None Endocrine/Autoimmune: None GI: Colon polyps, Hemorrhoids : None HEENT: None Psych: None Musculoskeletal: None Derm: None - Past Surgical History Past Surgical History: Yes General: Colonoscopy HEENT: Other - Present Medications Home Medications: Ambulatory Orders Medication Instructions Recorded Confirmed Docusate Sodium 250Mg Capsule 250 mg PO DAILY #10 cap 09/27/22 [Colace 250Mg Capsule] HYDROcod/ACETAM 5/325 [[place] 5/325] 1 each PO Q4H #20 tablet 09/27/22 cephALEXin [Keflex] 500 mg PO Q6H #28 cap 05/27/23 Ofloxacin [Ofloxacin Otic drops] 10 drops LEFTEAR DAILY 10 Days #10 07/12/24 ml - Allergies Allergies/Adverse Reactions: Allergies Allergy/AdvReac Type Severity Reaction Status Date / Time terbinafine HCl * Allergy Severe Anaphylaxis Verified 07/12/24 11:18 [From Lamisil] - Social History Does the pt smoke?: No Smoking Status: Never smoker Does the pt drink ETOH?: Yes Does the pt have substance abuse?: Yes PD ED PE NORMAL - Vitals Vital signs reviewed: Yes - General General: Alert and oriented X 3, No acute distress, Well developed/nourished - HEENT HEENT: Atraumatic, Other (Right ear: normal intact TM. Left ear: external ear canal swelling, unable to visualize TM) - Cardiac Cardiac: RRR, No murmur, No gallop, Strong equal pulses - Respiratory Respiratory: No respiratory distress, Clear bilaterally - Abdomen Abdomen: Soft - Extremities Extremities: No edema, No calf tenderness / cord - Psych Psych: Other PD ED PE EXPANDED - HEENT HEENT: PERRL - Psych Psych: Depressed, Tearful, Anxious, Manic, Pressured speech. No: Suicidal, Homicidal, Withdrawn Results - Vitals Vitals: Vital Signs - 24 hr 07/12/24 07/12/24 07/12/24 11:14 12:46 13:18 Heart Rate 68 61 Respiratory 18 18 Rate Blood Pressure 137/90 H 120/78 Blood Pressure 123/91 H [Right] O2 Saturation 99 99 Oxygen O2 Source [With Activity] Nasal cannula O2 Source [Without Activity] Nasal cannula O2 Source Room air - EKG (time done) 1125 EKG releavant findings:: EKG personally interpreted by author of this note. Relevant findings are: Rate: Rate (enter#) (75) Rhythm: NSR [place]: Normal Intervals: Normal NC QRS: Normal Ischemia: Normal ST segments Other comments: Other comments (atrial premature complex) Computer interpretation: Agree with computer - Labs Labs: Laboratory Tests 07/12/24 07/12/24 07/12/24 11:54 11:54 11:54 WBC 5.0 RBC 5.00 Hgb 15.7 Hct 47.6 MCV 95.2 H MCH 31.4 H MCHC 33.0 RDW 12.5 Plt Count 254 MPV 8.9 Neut # (Auto) 3.8 Lymph # (Auto) 0.7 L [place] # (Auto) 0.4 Eos # (Auto) 0.0 Baso # (Auto) 0.0 Absolute Nucleated RBC 0.00 Nucleated RBC % 0.0 Sodium 138 Potassium 4.5 Chloride 104 Carbon Dioxide 29 Anion Gap 5.0 L BUN 19 Creatinine 0.9 Estimated GFR (MDRD) 84 L Glucose 93 Calcium 9.9 Total Bilirubin 0.9 AST 15 ALT 16 Alkaline Phosphatase 62 Troponin I High Sens 2.9 Total Protein 6.9 Albumin 4.4 Globulin 2.5 Albumin/Globulin Ratio 1.8 Lipase 27 TSH 0.93 - Rads (name of study) chest Xray Relevant Findings:: Final report received, EMP independent interpretation of test, Other (no acute cardiopulmonary abnormalities) PD Medical Decision Making - ED course ED course: Exam without evidence of volume overload so doubt heart failure. EKG without signs of active ischemia, arrhythmias or a-fib. Given the timing of pain to ER presentation, single troponin was negative so doubt NSTEMI. Presentation not consistent with acute PE (Wells low risk low),pneumothorax (not visualized on chest xr), thoracic aortic dissection, pericarditis, tamponade, pneumonia (no infectious symptoms, clear chest xr), myocarditis (no recent illness, neg trop). HEART score: 2 so plan to discharge patient home with PCP follow up. Departure - Departure Disposition: 01 , Self Care Clinical Impression: Heart palpitations, External otitis of left ear Instructions: ED Otitis Externa Prescriptions: Ofloxacin [Ofloxacin Otic drops] 10 drops LEFTEAR DAILY 10 Days #10 ml Comments: Thank you for trusting us with your care. We have completed labs, EKG, chest x- ray and we are not seeing any acute abnormal findings at this point in time. I do believe that you are experiencing a severe amount of stress and anxiety from the loss of your and I would strongly encourage you to get set up with grief counseling to help you with processing your loss. I also strongly encourage you to follow-up with primary care provider to consider starting an antidepressant for a short period of time to help you with the depression you are experiencing. Please come back to the emergency department if you are heart palpitations change to chest pain, dizziness or any worsening symptoms. We also have found that you have an external ear infection of your left ear we have placed 10 drops in your left ear today he will do this once a day for the next 10 days I have sent your prescription to your preferred pharmacy on file. Make sure that after he put the eardrops in your left ear that you are laying down for about 45 minutes so that the eardrops can penetrate to the infection of your left ear. Again please come back to the emergency department if your chest palpitations symptoms change in severity or get any worse or if you start to develop any urgent emergent concerning symptoms. Forms: PCP List Discharge Date/Time: 07/12/24 13:28
[2024-07-12 12:12] LABS: ALBUMIN 4.4 g/dL (3.2-5.5); ALBUMIN/GLOBULIN RATIO 1.8 (1.0-2.2); BILIRUBIN,TOTAL 0.9 mg/dL (0.2-1.0); CALCIUM 9.9 mg/dL (8.5-10.3); CREATININE 0.9 mg/dL (0.6-1.3); POTASSIUM 4.5 mmol/L (3.5-4.5); TOTAL PROTEIN 6.9 g/dL (6.4-8.9)
[2024-07-12 12:19] LABS: TROPONIN I HIGH SENSITIVITY 2.9 ng/L (2.3-19.7)
--- NOTE | 2024-07-12 12:33 | XRAY Report ---
PROCEDURE: Chest 1V INDICATIONS: Chest pain TECHNIQUE: One view of the chest was acquired. COMPARISON: None. FINDINGS: Surgical changes and devices: None. Lungs and pleura: No pleural effusions or pneumothorax. Lungs are clear. Mediastinum: Mediastinal contours appear normal. Heart size is normal. Calcification is seen of th e aortic arch. Bones and chest wall: Age-appropriate degenerative changes are seen. No suspicious bony lesions. Overlying soft tissues appear unremarkable. IMPRESSION: No acute cardiopulmonary process. Reviewed by: Mannie Olivares MD on 07/12/2024 11:32 AM [facility]ANT Approved by: Mannie Olivares MD on 07/12/2024 11:32 AM BRANT Station ID: [id number]
[2024-07-12] MEDS: OFLOXACIN 0.3% OPHTH DROPS EACHEAR STA (12:52)
[2024-07-12 13:32] VITALS: BP 120/78
== END 2024-07-12 13:28 | disposition home or self-care (01) ==
LOC: ED 11:09
DX: R00.2 Palpitations (principal); H60.92 Unspecified otitis externa, left ear
CPT/HCPCS: 36415; 71045; 80053; 83690; 84443; 84484; 85025; 93005; 99284; A9270